=== PATIENT | male | born 1950 | race Caucasian/White ===

== ENCOUNTER 2025-03-13 06:57 | Outpatient (CLI) | payer OTHER ==
[2025-03-13 07:23] LABS: BASO % 0.4 % (0.1-1.2); EOS # 0.07 (0.04-0.54); EOS % 1.5 % (0.7-7.0); LYMPH # 1.99 (1.18-3.74); LYMPH % 43.5 % (19.3-53.1); MEAN PLATELET VOLUME 11.10 fl (9.4-12.4); MONO # 0.40 (0.24-0.82); MONO % 8.8 % (4.7-12.5); NEUT # 2.08 (1.56-6.13); NEUT % 45.6 % (34.0-71.1); RED CELL DISTRIBUTION WIDTH 12.5 % (11.6-14.4)
[2025-03-13 08:07] LABS: ALT/SGPT 21 U/L (12-78); AST/SGOT 19 U/L (15-37); BILIRUBIN TOTAL 1.23 mg/dL (0.3-1.2); BUN CREA RATIO 18 (7.0-25.0); CREATININE SERUM 0.92 mg/dL (0.70-1.30); GFR 79.99; GLOBULINA 3.1 G/DL (2.4-3.5); GLUCOSE FASTING 106 mg/dL (65-100); OSMOLALITY SERUM 289 MOSM/KG (275-295); PROSTATIC SPECIFIC ANTIGEN < 0.010 NG/ML (0.010-4.00)
== END 2025-03-13 07:07 | disposition home or self-care (01) ==
LOC: LAB 06:57
DX: C61 Malignant neoplasm of prostate (principal)